=== PATIENT | female | born 1950 | race Asian ===

== ENCOUNTER → 2020-05-11 11:21 | Outpatient (BNVA) | payer MEDICARE, SELFPAY | PROVIDERS: PCP Internal Medicine; Visit Provider Orthopaedic Surgery | DX: Z47.1 Aftercare following joint replacement surgery (principal); Z96.651 Presence of right artificial knee joint | CPT/HCPCS: 99212 ==

== ENCOUNTER 2020-06-19 12:09 | Outpatient (REF) | payer MEDICARE, SELFPAY ==
[2020-06-19 13:45] LABS: Alanine Aminotransferase 28 U/L (0-31); Albumin Level 4.5 g/dL (3.5-5.0); Alkaline Phosphatase 114 U/L (39-117); Anion Gap 13 (12-20); Aspartate Amino Transferase 33 U/L (5-31); Bilirubin Total 0.6 mg/dL (0.0-1.0); Blood Urea Nitrogen 13 mg/dL (9-16); Calcium 9.3 mg/dL (8.4-10.2); Carbon Dioxide 28 mmol/L (22-29); Chloride 107 mmol/L (96-108); Estimated Glomerular Filt Rate 60; Glucose Random 113 mg/dL (60-115); Potassium 4.5 mmol/l (3.3-5.1); Sodium 143 mmol/L (135-145); Total Protein 7.7 g/dL (6.5-8.0)
== END 2020-06-19 12:10 | disposition home or self-care (01) ==
LOC: HO.LAB 12:09
PROVIDERS: Visit Provider Internal Medicine
DX: I10 Essential (primary) hypertension (principal)
CPT/HCPCS: 80053

== ENCOUNTER → 2020-06-22 09:40 | Outpatient (BNVA) | payer MEDICARE, SELFPAY | PROVIDERS: Visit Provider Orthopaedic Surgery | DX: Z47.1 Aftercare following joint replacement surgery (principal); Z96.652 Presence of left artificial knee joint | CPT/HCPCS: 99212 ==

== ENCOUNTER 2022-03-10 08:02 | Outpatient (REF) | payer MEDICARE, SELFPAY ==
--- NOTE | ~2022-03-10 | XR_ITS ---
EXAMINATION: XR KNEE-BILATERAL XR KNEE-LEFT CLINICAL INFORMATION: Right knee pain COMPARISON: Bilateral knee and right knee done on 1914 2019. TECHNIQUE: Standing AP view of both knees and lateral and sunrise view of the right knee. FINDINGS: Right knee: Postsurgical changes of total right knee arthroplasty is noted with intact hardware and satisfactory alignment. No significant change. AP upright lateral knee: Moderate medial and mild to moderate lateral compartmental osteoarthrosis, similar to prior study. XR/XR knee RT 2V IMPRESSION: 1. Stable postsurgical changes of total right knee arthroplasty showing intact hardware and satisfactory alignment, unchanged since 04/17/2020. 2. Stable osteoarthrosis of the left knee.
--- NOTE | ~2022-03-10 | XR_ITS ---
EXAMINATION: XR KNEE-BILATERAL XR KNEE-LEFT CLINICAL INFORMATION: Right knee pain COMPARISON: Bilateral knee and right knee done on 1914 2019. TECHNIQUE: Standing AP view of both knees and lateral and sunrise view of the right knee. FINDINGS: Right knee: Postsurgical changes of total right knee arthroplasty is noted with intact hardware and satisfactory alignment. No significant change. AP upright lateral knee: Moderate medial and mild to moderate lateral compartmental osteoarthrosis, similar to prior study. XR/XR knee standing BI IMPRESSION: 1. Stable postsurgical changes of total right knee arthroplasty showing intact hardware and satisfactory alignment, unchanged since 04/17/2020. 2. Stable osteoarthrosis of the left knee.
== END 2022-03-10 08:03 | disposition home or self-care (01) ==
LOC: HO.HOSX 08:02
PROVIDERS: Visit Provider Physician Assistant
DX: T84.84XA Pain due to internal orthopedic prosthetic devices, implants and grafts, initial encounter (principal); M25.562 Pain in left knee; Z96.651 Presence of right artificial knee joint
CPT/HCPCS: 73560; 73565; 99212

== ENCOUNTER → 2022-04-17 09:47 | Outpatient (BNVA) | payer MEDICARE, SELFPAY | PROVIDERS: PCP Internal Medicine; Visit Provider Nurse Practitioner Family | DX: M25.561 Pain in right knee (principal); Z96.653 Presence of artificial knee joint, bilateral | CPT/HCPCS: 99202 ==

== ENCOUNTER 2022-04-24 10:27 | Outpatient (REF) | payer MEDICARE, SELFPAY ==
--- NOTE | ~2022-04-24 | MM_ITS ---
EXAMINATION: BONE DENSITOMETRY CLINICAL INDICATION: Age-related osteoporosis without current pathological fracture. COMPARISON: Previous BD dated 10/05/2019 and baseline BD dated 07/09/2010. TECHNIQUE: Using a [employer] DXA System (software version: 13.1) manufactured by [employer], dual-energy x-ray absorptiometry was performed of the lumbar spine and left hip. The images are of good technical quality. Summary results are attached. FINDINGS: AP SPINE L1-L4: Current: BMD 0.937 g/cm2, Z-score 0.9, T-score -2.0, osteopenia, 0.4% increase from previous, 0.4% increase from baseline (<5% change is not significant). Prior: BMD 0.933 g/cm2. Baseline: BMD 0.933 g/cm2. LEFT FEMUR, NECK: Current: BMD 0.860 g/cm2, Z-score 1.3, T-score -1.3, osteopenia. Prior: BMD 0.931 g/cm2. Baseline: BMD 0.933 g/cm2. LEFT FEMUR, TOTAL: Current: BMD 0.991 g/cm2, Z-score 2.3, T-score -0.1, normal, 9.5% decrease from previous, 6.7% decrease from baseline (<5% change is not significant). Prior: BMD 1.095 g/cm2. Baseline: BMD 1.062 g/cm2. IDENTIFIED RISK FACTORS: Osteoporosis. Menopause. HISTORY OF FRACTURE: None listed. MEDICATIONS: Vitamin D. MM/XR DEXA axial skeleton IMPRESSION: 1. DIAGNOSIS: Osteopenia based on the lowest T-score value of -2.0 in the lumbar spine applying World Health Organization criteria. 2. 10-YEAR FRACTURE RISK PREDICTION, FRAX: Major osteoporotic fracture (clinical spine, forearm, hip or shoulder) 4.0%. Hip fracture 0.7%. 3. Treatment Recommendations: NOF guidelines recommend consideration for treatment in postmenopausal women and men age 50 and older presenting with the following: -A hip or vertebral (clinical or morphometric) fracture. -T-score less than or equal to -2.5 at the femoral neck or spine after appropriate evaluation to exclude secondary causes. -Low bone mass at the hip or spine and a 10-year fracture probability by FRAX of greater than or equal to 3% for hip fracture or greater than or equal to 20% for major osteoporotic fracture based on the [place] adapted WHO algorithm. 4. Other Recommendations: All treatment decisions require clinical judgment and consideration of individual patient factors, including patient preferences, comorbidities, previous drug use, risk factors not captured in the FRAX model (e.g. frailty, falls, vitamin D deficiency, increased bone turnover, interval significant decline in bone density) and possible under or overestimation of fracture risk by FRAX. Additional medical evaluation for secondary cause of low bone mineral density may be appropriate. FUTURE SCAN RECOMMENDATION: People with diagnosed cases of osteoporosis or at high risk for fracture should have regular bone mineral density tests. For patients eligible for Medicare, routine testing is allowed once every 2 years. The testing frequency can be increased to one year for patients who have rapidly progressing disease, those who are receiving or discontinuing medical therapy to restore bone mass, or have additional risk factors.
--- NOTE | ~2022-04-24 | MM_ITS ---
EXAMINATION: MM SCREENING DIGITAL BREAST TOMOSYNTHESIS, BILATERAL CLINICAL INFORMATION: Screening. Asymptomatic. The lifetime risk of breast cancer based on the Tyrer-Cuzick Model is 2%. COMPARISON: Mammography: 05/21/2019, 05/17/2018, 04/14/2017 TECHNIQUE: Digital breast tomosynthesis is performed in both the craniocaudal and mediolateral oblique views along with computer-aided detection (CAD). Synthesized 2D images are generated from the tomosynthesis. Additional right CC view is provided. FINDINGS: There are scattered areas of fibroglandular density (ACR BI-RADS breast composition Category b). There are no significant masses, abnormal calcifications, or other abnormalities. Parenchymal pattern is similar to prior studies. There is no developing density or architectural abnormality. The axilla and skin contours are unremarkable. No significant changes. MM/MM tomosynthesis screening BI IMPRESSION: No mammographic evidence of malignancy. ASSESSMENT: BI-RADS 1: Negative RECOMMENDATION: Routine annual mammography screening. This patient's information was entered into a reminder system with a target due date for their next mammogram.
== END 2022-04-24 10:28 | disposition home or self-care (01) ==
LOC: HO.MAMMO 10:27
PROVIDERS: PCP Internal Medicine; Visit Provider Internal Medicine
DX: Z12.31 Encounter for screening mammogram for malignant neoplasm of breast (principal); Z13.820 Encounter for screening for osteoporosis; M81.0 Age-related osteoporosis without current pathological fracture; Z78.0 Asymptomatic menopausal state
CPT/HCPCS: 77063; 77067; 77080

== ENCOUNTER 2022-05-28 06:01 | Outpatient (REF) | payer MEDICARE, SELFPAY | END 2022-05-28 06:02 | disposition home or self-care (01) | LOC: CF 06:01 | PROVIDERS: Visit Provider Internal Medicine | DX: M25.561 Pain in right knee (principal); Z96.659 Presence of unspecified artificial knee joint | CPT/HCPCS: 64447 ==

== ENCOUNTER 2022-07-15 10:01 | Outpatient (REF) | payer MEDICARE, SELFPAY ==
[2022-07-15 10:23] LABS: MANUAL DIFF FLAG NO
[2022-07-15 10:43] LABS: Basophils Absolute Auto 0.1 X10*3/uL (0.0-0.2); Basophils Percent Auto 0.7 % (0-2); Eosinophils Absolute Auto 0.1 X10*3/uL (0.0-0.4); Hematocrit 45.5 % (37.0-47.0); Imm Gran Abs Auto 0.03 X10*3/uL (0.00-0.03); Imm Gran Pct Auto 0.3 % (0.0-0.4); Lymphocytes Absolute Auto 1.9 X10*3/uL (1.2-4.9); Lymphocytes Percent Auto 22.4 % (20-40); Mean Corpuscular Hemoglobin 30.5 pg (27.0-33.0); Mean Corpuscular Volume 92.7 fL (80.0-98.0); Mean Platelet Volume 10.9 fL (9.4-12.3); Monocytes Absolute Auto 0.5 X10*3/uL (0.1-1.2); Monocytes Percent Auto 6.1 % (2-11); Neutrophils Percent Auto 69.5 % (45-73); Platelet Count 163 X10*3/uL (160-400); Red Blood Count 4.91 X10*6/uL (4.20-5.50); Red Cell Distribution Width 12.9 % (11.0-16.0); White Blood Count 8.7 X10*3/uL (4.8-10.8)
[2022-07-15 12:06] LABS: Folate 11.3 ng/mL (> or = 4.0); Vitamin B12 792 pg/mL (200-900)
[2022-07-15 12:58] LABS: Alanine Aminotransferase 38 U/L (0-31); Albumin Level 4.4 g/dL (3.5-5.0); Alkaline Phosphatase 111 U/L (39-117); Anion Gap 14 (12-20); Aspartate Amino Transferase 34 U/L (5-31); Bilirubin Total 0.5 mg/dL (0.0-1.0); Blood Urea Nitrogen 16 mg/dL (9-16); Calcium 9.8 mg/dL (8.4-10.2); Carbon Dioxide 25 mmol/L (22-29); Chloride 106 mmol/L (96-108); Cholesterol 139 mg/dL; Estimated Glomerular Filt Rate 56; Free T4 (Free Thyroxine) 1.02 ng/dL (0.71-1.85); Glucose Random 141 mg/dL (60-115); HDL Cholesterol 52 mg/dL; LDL Cholesterol Calculated 71 mg/dl; Potassium 4.5 mmol/L (3.3-5.1); Sodium 140 mmol/L (135-145); Total Protein 7.7 g/dL (6.5-8.0); Triglycerides 82 mg/dL; Vitamin D 25-OH Total 23.4 ng/mL (>30)
== END 2022-07-15 10:02 | disposition home or self-care (01) ==
LOC: HO.LAB 10:01
PROVIDERS: PCP Internal Medicine; Visit Provider Internal Medicine
DX: E66.9 Obesity, unspecified (principal); E78.00 Pure hypercholesterolemia, unspecified
CPT/HCPCS: 36415; 80053; 80061; 82306; 82607; 82746; 84439; 84443; 85025

== ENCOUNTER 2022-08-20 13:27 | Day surgery (SDC) | payer MEDICARE, SELFPAY ==
[2022-08-20 13:45] VITALS: BMI 33.9
--- NOTE | 2022-08-20 14:15 | MHC.SHP ---
Pre-Procedural Eval Section A Date of Service: 08/20/22 Section B Chief Complaint: Pain in right knee Relevant Family History (Specify if Yes): No Relevant Social History: Other (specify) Present Medications: see Short Stay Collaborative assessment Medical History: No relevant PMH History of Previous Operations: Relevant previous surgery/procedure and date(s) (Knee arthroplasty) Allergies: Allergies Allergy/AdvReac Type Severity Reaction Status Date / Time rifampin Allergy Unknown Rash Verified 08/20/22 13:44 bee sting Allergy Unknown Swelling Uncoded 08/20/22 13:44 Review of Systems Sugical H&P ROS: Negative: Constitution, Cardiovascular and Respiratory Exam Surgical H&P Exam: Normal: HEENT, Normal: Heart and Normal: Lungs Plan Diagnosis/Plan: Unchanged She had 100% knee pain relief for 3-4 hours post diagnostic injection. Proceed with temporary PNS of the right saphenous nerve under local and US guidance. Preop IV abx given history of TKA. Time Spent With Patient Time: Total time managing care of this patient today ____ minutes.
[2022-08-20] MEDS: ceFAZolin Sodium/Dextrose,Iso 2 GM/50 ML PIGGYBACK IV (15:55)
--- NOTE | 2022-08-20 16:16 | PC.NURSE ---
antibiotics as per md. Ramirez
[2022-08-20 16:33] VITALS: BP 178/89; PULSE 87; RESP 18; TEMP 36.8; O2SAT 99
--- NOTE | 2022-08-21 10:26 | PM.OP ---
Brief Operative Note Date of Service: 08/20/22 Pre-op diagnosis: Chronic right knee joint pain, post TKA lower limb causalgia Post-op diagnosis: same Procedure: Temporary right saphenous nerve stimulator placement Implants: SPR temporary PNS system Surgeon: Christiano Ramirez MD Anesthesia: local Was an Outpatient Coordinator used for this Procedure?: No Estimated blood loss (mL): 1 Pathology: none sent Condition: stable Disposition: same day
--- NOTE | 2022-08-21 10:30 | P.OP_ITS ---
Operative Note Operative Note Date of Service: 08/20/22 Narrative: Peripheral Nerve Stimulation Temporary Lead Placement, Ultrasound-Guided, Saphenous Nerve, Right ? After the risks, benefits and alternatives were discussed with the patient and informed consentwas obtained, patient was placed in the supine position and padded to foster comfort. Appropriate skin and bony landmarks were identified, and pertinent vascular structures were located. The skin overlying the needle entry site was prepped and draped in sterile fashion. Ultrasound was used to identify the femoral artery, the femoral vein and the saphenous nerve. After identifying and marking the intended target along the course of the Saphenous nerve, the skin around the planned entry point and the subcutaneous tissues were injected with local anesthetic. An introducer needle and stimulating probe were assembled, inserted and advanced along the intended course of the saphenous; nerve, taking care to maintain the proper depth of insertion as the introducer was advanced under ultrasound guidance. The introducer needle was delivered to a location in proximity to the nerve taking care not to puncture the femoral artery or the vein. Multiple stimulation parameters were used to deliver stimulation to the saphenous nerve in concert with stimulating at multiple positions around the nerve. Nerve target acquisition was confirmed noting generation of sensory and mild motor effects (paresthesia, muscle tension, etc) in the medial knee, leg and ankle; corresponding to the distribution of the saphenous nerve. Various electrical parameter combinations were tested, and the lead location was adjusted (physic ally relocated under ultrasound guidance) until the patient indicated medial knee paresthesia and tension overlapping the distribution of the patient?s typical region of pain. The stimulating probe was removed from the introducer and a percutaneous lead was guided through the needle and delivered to a location in similar proximity to the nerve. Final location was verified with electrical stimulation and documented. The introducer needle was removed, and the exposed end of the percutaneous lead was attached to an external stimulator unit. Various electrical parameter combinations were again tested until the patient indicated paresthesia and muscle tension overlapping the distribution of the patient?s typical region of pain. After confirming that lead impedance was in the normal range, the external unit was detached, the needle was removed, and the lead was anchored at the skin. The lead was threaded into the connector block and electrical continuity and desired patient response was confirmed. The connector block was attached to the external stimulator unit. The site was covered with a sterile occlusive dressing. A final ultrasound image was taken to document final placement. The patient was observed for stability of vital signs and comfort.
== END 2022-08-20 17:36 | disposition home or self-care (01) ==
PROVIDERS: PCP Internal Medicine; Visit Provider Internal Medicine
PROC: (CPT 64555; principal; 2022-08-20 14:40)
DX: M25.561 Pain in right knee (principal); G89.29 Other chronic pain; Z96.651 Presence of right artificial knee joint; M81.0 Age-related osteoporosis without current pathological fracture; E66.9 Obesity, unspecified; F41.8 Other specified anxiety disorders; I10 Essential (primary) hypertension; R73.02 Impaired glucose tolerance (oral); R76.12 Nonspecific reaction to cell mediated immunity measurement of gamma interferon antigen response without active tuberculosis; Z88.8 Allergy status to other drugs, medicaments and biological substances
CPT/HCPCS: 64555; C1778; J0690

== ENCOUNTER → 2022-08-26 10:38 | Outpatient (BNVA) | payer MEDICARE, SELFPAY | PROVIDERS: PCP Internal Medicine; Visit Provider Nurse Practitioner Family | DX: Z48.00 Encounter for change or removal of nonsurgical wound dressing (principal); Z96.89 Presence of other specified functional implants | CPT/HCPCS: 99211 ==

== ENCOUNTER → 2022-09-03 10:32 | Outpatient (BNVA) | payer MEDICARE, SELFPAY | PROVIDERS: PCP Internal Medicine; Visit Provider Nurse Practitioner Family | DX: Z48.00 Encounter for change or removal of nonsurgical wound dressing (principal); Z97.8 Presence of other specified devices | CPT/HCPCS: 99211 ==

== ENCOUNTER → 2022-10-17 08:53 | Outpatient (BNVA) | payer MEDICARE, SELFPAY | PROVIDERS: PCP Internal Medicine; Visit Provider Internal Medicine | DX: M25.561 Pain in right knee (principal); Z96.659 Presence of unspecified artificial knee joint | CPT/HCPCS: 99212 ==

== ENCOUNTER → 2022-12-26 11:03 | Outpatient (BNVA) | payer MEDICARE, SELFPAY | PROVIDERS: PCP Internal Medicine; Visit Provider Internal Medicine | DX: M25.561 Pain in right knee (principal); Z96.651 Presence of right artificial knee joint | CPT/HCPCS: 99212 ==

== ENCOUNTER 2023-01-15 07:24 | Outpatient (REF) | payer MEDICARE, SELFPAY ==
--- NOTE | ~2023-01-15 | XR_ITS ---
EXAMINATION: XR KNEE, RIGHT XR KNEE STANDING, BILATERAL CLINICAL INFORMATION: Knee pain. COMPARISON: Bilateral knees 03/10/2022 TECHNIQUE: AP standing view of both knees with 2 additional views of the right knee. FINDINGS: Total knee prosthesis is again seen on the right. Prosthetic components in good position and intact without significant change from prior. Again seen are moderate degenerative changes in the left knee with narrowing of the medial compartment and osteophytes, unchanged from prior. No fractures are detected. XR/XR knee standing BI IMPRESSION: 1. Right total knee prosthesis in good position. 2. Moderate degenerative changes left knee, unchanged.
--- NOTE | ~2023-01-15 | XR_ITS ---
EXAMINATION: XR KNEE, RIGHT XR KNEE STANDING, BILATERAL CLINICAL INFORMATION: Knee pain. COMPARISON: Bilateral knees 03/10/2022 TECHNIQUE: AP standing view of both knees with 2 additional views of the right knee. FINDINGS: Total knee prosthesis is again seen on the right. Prosthetic components in good position and intact without significant change from prior. Again seen are moderate degenerative changes in the left knee with narrowing of the medial compartment and osteophytes, unchanged from prior. No fractures are detected. XR/XR knee RT 2V IMPRESSION: 1. Right total knee prosthesis in good position. 2. Moderate degenerative changes left knee, unchanged.
== END 2023-01-15 07:25 | disposition home or self-care (01) ==
LOC: HO.HOSX 07:24
PROVIDERS: Visit Provider Orthopaedic Surgery
DX: M25.561 Pain in right knee (principal); M76.891 Other specified enthesopathies of right lower limb, excluding foot; E11.65 Type 2 diabetes mellitus with hyperglycemia; Z96.651 Presence of right artificial knee joint
CPT/HCPCS: 73560; 73565; 99212

== ENCOUNTER 2023-03-10 14:25 | Outpatient (AMB) | payer MEDICARE, SELFPAY ==
[2023-03-10 14:41] VITALS: BP 140/88; PULSE 94; O2SAT 97; BMI 34.1
--- NOTE | 2023-03-10 14:41 | A.OFFPC_ITS ---
Vital Signs 03/10/23 14:41 Height 4 ft 11 in Weight 169 lb BMI 34.1 BP 140/88 H Blood Pressure Location Lt brachial Position Sitting Pulse 94 Pulse Source Pulse Oximeter Pulse Oximetry (%) 97 Oxygen Delivery Method Room Air Intake Visit Reasons: Hypertension Allergies rifampin Allergy (Unknown, Verified 03/10/23 14:42) Rash bee sting Allergy (Unknown, Uncoded 03/10/23 14:42) Swelling Medication List - Last Reconciled 03/10/23 by Harmony Quintanilla MD acetaminophen (Tylenol) 650 mg PO Q6H PRN Bacillus coagulan-calcium carb 2 billion cell- 140 mg (Digestive Advantage Probiotic) caps PO blood pressure monitor (Blood Pressure Kit) As directed celecoxib (Celebrex) 200 mg PO BID PRN 90 days cholecalciferol (vitamin D3) 25 mcg PO DAILY cimetidine 200 mg PO .QD hydrochlorothiazide 25 mg PO DAILY lisinopril 40 mg PO DAILY 30 days metformin 500 mg PO BIDWMEAL polyethylene glycol 3350 (Miralax) 17 grams PO DAILY Tobacco use date assessed: 01/06/23 Fall risk assessment: No Falls in past year Last assessed Fall Risk: 03/10/23 Dental Screening Dental Screen Date: 03/10/23 Did you have a dental visit in the last 12 months?: Yes Did you have a dental problem in the last 6 months where you did not have access to dental care?: No Was dental information given to patient?: Patient has dentist HPI Hypertension HPI Details 72-year-old obese female with diabetes mellitus, hypertension, GERD last seen in January 2023. Patient complained of right knee pain(fall December 2021) and was sent to ortho. Patient is here for follow-up. Blood pressure medication adjusted. Review of the Ortho note seen in January 2023 with a history of right total knee replacement diagnosis of tendonitis right quadriceps tendon no relief from saphenous nerve block trial from the pain management in May 2022. Advise physical therapy [facility] Medical History (Reviewed 01/15/23 @ 10:43 by Sole Ferraro [facility]) Annual physical exam Anxiety and depression Breast cancer screening by mammogram Colon cancer screening Fatty liver GERD (gastroesophageal reflux disease) Hiatal hernia Hypertension Impaired glucose tolerance Knee osteoarthritis Obesity (BMI 30-39.9) Osteoporosis Positive QuantiFERON-TB Gold test Surgical History H/O shoulder surgery History of arthroscopy of left knee (~2005) S/P knee replacement Status post right knee replacement Family History Father Alcoholic Smoker Mother Breast cancer Daughter Bipolar 1 disorder Social History Housing: House Patient Tobacco Use Status: Never used Tobacco e-Cigarette/Vaping Use: Never Used Current occupational status: retired Current occupation: [employer] Cognitive needs: No Hearing needs: No Vision needs: No Questionnaire PHQ-9 Over the last 2 weeks, how often have you been bothered by any of the following problems? 1. Little interest or pleasure in doing things: not at all 2. Feeling down, depressed, or hopeless: not at all 3. Trouble falling or staying asleep, or sleeping too much: not at all 4. Feeling tired or having little energy: not at all 5. Poor appetite or overeating: not at all 6. Feeling bad about yourself - or that you are a failure or have let yourself or your family down: not at all 7. Trouble concentrating on things, such as reading the newspaper or watching television: not at all 8. Moving or speaking so slowly that other people could have noticed. Or the opposite - being so fidgety or restless that you have been moving around a lot more than usual: not at all 9. Thoughts that you would be better off or of hurting yourself in some way: not at all Total score: 0 Depression Screening Interpretation: Negative Source: Developed by Drs. Yung Clark, Garth Mondragon and colleagues, with an educational davina from [employer]. Thrive Questionnaire Date Thrive assessed: 09/08/22 AUDIT C Alcohol Use Questionnaire (AUDIT-C) 1. How often do you have a drink containing alcohol?: Monthly or less 2. How many drinks containing alcohol do you have on a typical day when you are drinking?: 1 or 2 Total Score: 1 DAVID-7 AMB Questionnaire DAVID-7 Date DAVID - 7 assessed: 09/08/22 Source: Developed by Drs. Yung L. Eli Clark, Garth Zaidi and colleagues, with an educational davina from [employer]. Physical exam (Primary Care) Vital Signs: Last Vital Signs Pulse 94 03/10/23 14:41 BP 140/88 H 03/10/23 14:41 Pulse Ox 97 03/10/23 14:41 Oxygen Delivery Method Room Air 03/10/23 14:41 BMI result Body Mass Index 34.1 Tobacco/Smoking Status: Tobacco use Status Tobacco use date assessed 01/06/23 03/10/23 14:43 Patient Tobacco Use Status Never used Tobacco 03/10/23 14:43 e-Cigarette/Vaping Use Never Used 03/10/23 14:43 PHQ-9: PHQ-9 Score PHQ-9: Total score 0 03/10/23 14:43 Depression Screening Interpretation: Negative Thrive Assessment: Date of Thrive Assessment Date Thrive assessed 09/08/22 03/10/23 14:43 Const General: alert; No acute distress Eyes Conjunctivae: conjunctivae normal Resp Auscultation: clear to auscultation bilaterally Cardio Rate: regular rate Rhythm: regular rhythm GI Inspection: Yes normal to inspection Extrem General: Yes normal to inspection and No edema Assessment and Plan Assessment & Plan (1) Type 2 diabetes mellitus with hyperglycemia: Code(s): E11.65 - Type 2 diabetes mellitus with hyperglycemia Plan: Decrease the amount of carbohydrate intake, pasta, bread, rice and potatoes are all sugar and that is aside from all the sweet stuff, remember that fruits are good but they are Sweet also. Hemoglobin A1c goal of less than 7.0 patient is on metformin 500 mg twice a day (2) Tendinitis of right quadriceps tendon: Code(s): M76.891 - Other specified enthesopathies of right lower limb, excluding foot Plan: Patient has met with Orthopedics and has recommended physical therapy but patient states the pain has not been resolving but would not do any further action. (3) Hypertension: Code(s): I10 - Essential (primary) hypertension Plan: Continue with blood pressure medication. Decrease salt intake and exercise patient had an adjustment of the lisinopril to 30 mg once a day January 2023 patient states has been taking 40 mg all along and blood pressure remains to be elevated. Will add hydrochlorothiazide to lower it down Medications: New hydrochlorothiazide 25 mg PO DAILY 30 tabs 3RF I10 - Essential (primary) hypertension Changed From lisinopril 30 mg PO DAILY 30 days 30 tabs 2RF I10 - Essential (primary) hypertension To lisinopril 40 mg PO DAILY 30 days 30 tabs 2RF I10 - Essential (primary) hypertension Coding Level of Care Code Est Pt Level 4 (58127) Diagnoses Type 2 diabetes mellitus with hyperglycemia E11.65 Tendinitis of right quadriceps tendon M76.891 Hypertension I10
== END 2023-03-10 15:16 | disposition home or self-care (01) ==
LOC: HO.HMGH 14:25
PROVIDERS: PCP Internal Medicine; Visit Provider Internal Medicine
DX: E11.65 Type 2 diabetes mellitus with hyperglycemia (principal); M76.891 Other specified enthesopathies of right lower limb, excluding foot; I10 Essential (primary) hypertension
CPT/HCPCS: 99214

== ENCOUNTER 2023-03-11 10:00 | Outpatient (RCR) | payer MEDICARE, SELFPAY ==
[2023-02-09 11:06] VITALS: BP 188/94; PULSE 80
--- NOTE | 2023-02-09 14:45 | MHC.PT.EP ---
[facility] [place] Office [place] Office [place] Office [address] Jg Alcant[place] [address] [phone] F: [phone] F: [phone] F: [phone] F: [phone] Physical Therapy Plan of Care Date of Evaluation: Date of Surgery: NA Diagnosis: Other specified enthesopathies of unspecified lower limb, excluding foot and presence of unspecified artificial knee joint, quadriceps tendonitis, hx of total knee arthroplasty Assessment: Maria A is a 72 yo female referred to PT for Other specified enthesopathies of unspecified lower limb, excluding foot and presence of unspecified artificial knee joint, quadriceps tendonitis, hx of total knee arthroplasty. On PT examination, signs and symptoms consistent with R quadricep tightness/pain, and R knee joint pain. Impairments include B gross hip weakness, B knee weakness, knee pain, TTP at anterior to posterior joint line, TTP at patellar and quadriceps tendon, and impaired gait. Functional limitations include inability to bend knees/squat, walk or stand for prolonged periods of time, difficulty ascending/descending stairs, and R knee pain and occasional swelling. PT needed to address aforementioned impairments and functional limitations. PT to include STM, K-taping, B hip/knee strengthening, gait training, postural education, pt education, and HEP Frequency and Duration: The patient will be seen 2 x per week for 5 weeks Short Term Goals: In 2 weeks... 1. Pt will 100% return demonstrate HEP in order to become I with HEP 2. Pt will improve B heel strike in order to improve gait cycle and balance during ambulation Placement Specialist Goals: in 5 weeks... 1. Pt will improve gross hip strength by 1 MMT point in order to walk longer distances without pain 2. Pt will improve gross knee strength by 1 MMT point in order to ascend/descend stairs reciprocally (IR ascending/descending stairs sideways) Treatment Plan: Modalities to reduce pain, spasms and effusion. Manual therapy to restore motion and function. Therapeutic exercise to improve strength and flexibility. Neuromuscular re-education for posture and balance. Therapeutic activities to return to functional activities of daily living. Electronically signed by: Iraida Xie PT DPT Please sign and return to therapist. Thank you for your referral.
--- NOTE | 2023-03-20 14:27 | MHC.PT.DC ---
[facility] [place] Office [place] Office [place] Office [address] Jg Alcantara [address] [phone] F: [phone] F: [phone] F: [phone] F: [phone] Physical Therapy Discharge Report Diagnosis: Other specified enthesopathies of unspecified lower limb, excluding foot and presence of unspecified artificial knee joint, quadriceps tendonitis, hx of total knee arthroplasty Date of Surgery: NA Date of Evaluation: 02/09/23 Date of Discharge: 03/20/23 Treatments to Date: 9 Cancellations to Date: No Shows to Date: Discharge Status: Recommend MD Follow-up Discharge Summary: Maria A has completed 9 PT visits. Per Maria A she has not had any change in her symptoms with PT. When Maria A asked if she was compliant with her HEP she stated yes but was unable to demonstrate exercises correctly. Question compliance with HEP. Due to lack of improvement with PT she is being d/c from PT. Maria A was in agreement with the plan. She was advised to follow up with her doctor. Maria A has been d/c from PT today. I reviewed all HEP with her. Electronically signed by: Iraida Xie PT DPT Please sign and return to therapist. Thank you for your referral.
== END 2023-03-20 14:28 | disposition home or self-care (01) ==
LOC: HO.PT 10:00
PROVIDERS: PCP Internal Medicine; Visit Provider Orthopaedic Surgery
DX: M76.891 Other specified enthesopathies of right lower limb, excluding foot (principal); Z96.651 Presence of right artificial knee joint
CPT/HCPCS: 97110; 97116; 97140; 97161; 97530

== ENCOUNTER 2023-12-04 11:10 | Outpatient (AMB) | payer MEDICARE, SELFPAY ==
--- NOTE | 2023-12-04 11:17 | MHC.PC.OV ---
Vital Signs 12/04/23 11:20 Height 4 ft 11 in Weight 162 lb BMI 32.7 BP 138/70 Blood Pressure Location Lt brachial Position Sitting Pulse 78 Pulse Source Pulse Oximeter Pulse Oximetry (%) 96 Oxygen Delivery Method Room Air Intake Visit Reasons: PE - see comments Allergies rifampin Allergy (Unknown, Verified 12/04/23 11:20) Rash bee sting Allergy (Unknown, Uncoded 12/04/23 11:20) Swelling Medication List - Last Reconciled 12/04/23 by Harmony Quintanilla MD acetaminophen (Tylenol) 650 mg PO Q6H PRN blood pressure monitor (Blood Pressure Kit) As directed celecoxib (Celebrex) 200 mg PO BID PRN 90 days cholecalciferol (vitamin D3) 25 mcg PO DAILY hydrochlorothiazide 25 mg PO DAILY lisinopril 40 mg PO DAILY 30 days metformin 500 mg PO BIDWMEAL polyethylene glycol 3350 (Miralax) 17 grams PO DAILY Tobacco use date assessed: 12/04/23 Fall risk assessment: No Falls in past year Last assessed Fall Risk: 12/04/23 Dental Screening Dental Screen Date: 12/04/23 Did you have a dental visit in the last 12 months?: Yes Did you have a dental problem in the last 6 months where you did not have access to dental care?: No Was dental information given to patient?: Patient has dentist HPI PE - see comments HPI Details 73-year-old obese female with controlled diabetes mellitus hypertension coming in for physical exam last seen in March 2023. Patient's colonoscopy due mammogram due and bone density is up-to-date. [facility] Medical History (Updated 12/04/23 @ 12:13 by Harmony Quintanilla MD) Breast cancer screening by mammogram Breast cancer screening Annual physical exam Blood sugar increased Colon cancer screening Knee osteoarthritis Osteoporosis GERD (gastroesophageal reflux disease) Hypertension Obesity (BMI 30-39.9) Positive QuantiFERON-TB Gold test Anxiety and depression Impaired glucose tolerance Fatty liver Hiatal hernia Surgical History (Updated 01/15/23 @ 10:57 by Norm Ross) Status post right knee replacement S/P knee replacement H/O shoulder surgery History of arthroscopy of left knee (~2005) Family History Father Alcoholic Smoker Mother Breast cancer Daughter Bipolar 1 disorder Social History (Updated 12/04/23 @ 12:06 by Harmony Quintanilla MD) Housing: House Alcohol intake: current Comment: once q 2 week 2 drinks Patient Tobacco Use Status: Never used Tobacco Years Smoked: 2 years teenager e-Cigarette/Vaping Use: Never Used Current occupational status: retired Current occupation: [employer] Cognitive needs: No Hearing needs: No Vision needs: No Questionnaire PHQ-9 Over the last 2 weeks, how often have you been bothered by any of the following problems? 1. Little interest or pleasure in doing things: not at all 2. Feeling down, depressed, or hopeless: not at all 3. Trouble falling or staying asleep, or sleeping too much: not at all 4. Feeling tired or having little energy: not at all 5. Poor appetite or overeating: not at all 6. Feeling bad about yourself - or that you are a failure or have let yourself or your family down: not at all 7. Trouble concentrating on things, such as reading the newspaper or watching television: not at all 8. Moving or speaking so slowly that other people could have noticed. Or the opposite - being so fidgety or restless that you have been moving around a lot more than usual: not at all 9. Thoughts that you would be better off or of hurting yourself in some way: not at all Total score: 0 Depression Screening Interpretation: Negative Depression Screening Done: Yes Source: Developed by Drs. Yung Clark, Eli Mariano, Garth Zaidi and colleagues, with an educational davina from [email or web address]. Thrive Questionnaire Date Thrive assessed: 12/04/23 I am a: Patient What is your living situation today?: I have a steady place to live Within the past 12 months, did the food you bought not last and you didn't have the money to get more?: Never true Within the past 12 months, did you worry whether your food would run out before you got money to buy more?: Never true Do you have trouble paying for medicines?: No Do you have trouble getting transportation to medical appointments?: No Do you have trouble paying your heating and electricity bill?: No Do you have trouble taking care of your child, family member or friend?: No Do you have trouble with day-to-day activities such as bathing, preparing meals, shopping, managing finances, etc.?: No Are you currently unemployed and looking for a job?: No Are you interested in more education?: No Currently or been in a relationship where the following occur: no concerns reported THRIVE Score: 0 AUDIT C Alcohol Use Questionnaire (AUDIT-C) 1. How often do you have a drink containing alcohol?: Monthly or less 2. How many drinks containing alcohol do you have on a typical day when you are drinking?: 1 or 2 Total Score: 1 DAVID-7 AMB Questionnaire DAVID-7 Date DAVID - 7 assessed: 12/04/23 Feeling nervous, anxious, or on edge: 0 = Not at all Not being able to stop or control worryin = Not at all Worrying too much about different things: 0 = Not at all Trouble relaxin = Not at all Being so restless that it is hard to sit still: 0 = Not at all Becoming easily annoyed or irritable: 0 = Not at all Feeling afraid as if something awful might happen: 0 = Not at all Total DAVID-7 score (0-4 normal; 5-9 mild; 10-14 moderate; 15-21 severe): 0 Source: Developed by Drs. Yung Clark, Eli Mariano, Garth Zaidi and colleagues, with an educational davina from [email or web address]. Review of Systems Const Denies poor appetite and Denies weakness Eyes Denies no additional complaints ENT Reports Normal hearing present, Denies dizziness, Denies nasal congestion, Denies tinnitus and Denies sore throat Card Denies chest pain, Denies syncope, Denies rapid heart rate and Denies dyspnea Resp Denies cough and Denies dyspnea GI Denies change in stool character, Reports constipation, Denies diarrhea, Denies nausea and Denies vomiting Denies urinary frequency, Denies difficulty voiding and Denies dysuria Neuro Reports Normal hearing present, Denies confusion, Denies dizziness, Denies syncope and Denies weakness Psych Denies confusion Physical exam (Primary Care) Vital Signs: Last Vital Signs Pulse 78 12/04/23 11:20 BP 138/70 12/04/23 11:20 Pulse Ox 96 12/04/23 11:20 Oxygen Delivery Method Room Air 12/04/23 11:20 BMI result Body Mass Index 32.7 Tobacco/Smoking Status: Tobacco use Status Tobacco use date assessed 12/04/23 12/04/23 11:21 Patient Tobacco Use Status Never used Tobacco 12/04/23 11:18 e-Cigarette/Vaping Use Never Used 12/04/23 11:18 PHQ-9: PHQ-9 Score PHQ-9: Total score 0 12/04/23 11:46 Depression Screening Interpretation: Negative Thrive Assessment: Date of Thrive Assessment Date Thrive assessed 12/04/23 12/04/23 11:21 Currently or been in a relationship where the following occur: no concerns reported Const General: No confusion Orientation/consciousness: No confusion HENMT Head: Yes normocephalic Ears: external ears normal and TM's normal bilaterally Face and sinus: Yes normal facial exam Mouth: moist mucous membranes Throat: Yes tonsils normal Eyes Conjunctivae: conjunctivae normal Pupils: Equal, round and reactive pupils present and Pupil accommodation reflex normal Direct Ophthalmoscopy: normal light reflex Neck Neck: No lymphadenopathy Thyroid: Thyroid normal Chest Chest palpation & inspection: normal inspection of the chest Resp Effort & Inspection: normal respiratory effort and no audible wheezes Auscultation: clear to auscultation bilaterally, no crackles, no wheezes and lung sounds not diminished Cardio Rate: regular rate Rhythm: regular rhythm Peripheral pulses: radial pulses present and dorsalis pedis present GI Palpation (GI): no masses Auscultation: normal bowel sounds and normoactive bowel sounds Rectal Exam - Female: deferred Skin General skin exam: no rashes or lesions noted Rashes: no rashes Neuro General: No confusion Cranial nerves: Yes Equal, round and reactive pupils present and Yes Normal hearing present Cognition (Neuro): normal cognition Gait exam (Neuro): Normal gait present Motor exam (neuro): 5/5 motor strength present throughout Deep tendon reflexes (DTR's): Right brachioradialis reflex intensity grade: 2+, Left brachioradialis reflex intensity grade: 2+, Right patellar reflex intensity grade: 2+ and Left patellar reflex intensity grade: 2+ Extrem General: No edema Results AMB Hemoglobin A1c AMB Hemoglobin A1c 6.3 % Last Edit by Ciera Roldan CMA on 12/04/23 11:47 Results Reviewed Results Reviewed: Laboratory Last Values Hgb A1c (Clinic) 6.3 % (4.0-6.0) H 12/04/23 11:47 Assessment and Plan Assessment & Plan (1) Type 2 diabetes mellitus with hyperglycemia: Comment: Eye and lasik Code(s): E11.65 - Type 2 diabetes mellitus with hyperglycemia Plan: Decrease the amount of carbohydrate intake, pasta, bread, rice and potatoes are all sugar and that is aside from all the sweet stuff, remember that fruits are good but they are Sweet also. Hemoglobin A1c goal of less than 7.0 presently on metformin 500 mg twice a day (2) Hypertension: Code(s): I10 - Essential (primary) hypertension Plan: Continue with blood pressure medication. Decrease salt intake and exercise lisinopril 40 mg once a day hydrochlorothiazide 25 mg once a day advised blood work (3) Obesity (BMI 30-39.9): Code(s): E66.9 - Obesity, unspecified Plan: Diet and exercise (4) GERD (gastroesophageal reflux disease): Code(s): K21.9 - Gastro-esophageal reflux disease without esophagitis Plan: Avoid the foods that causes that usually spicy foods, tomato products, juices, coffee, soda and foods that your sensitive to. After eating do not lie down, allow 3-4 hours before in lie down. And keep the head of bed above 30 degrees to avoid the acid from going up. (5) Annual physical exam: Code(s): Z00.00 - Encounter for general adult medical examination without abnormal findings (6) Colon cancer screening: Code(s): Z12.11 - Encounter for screening for malignant neoplasm of colon (7) Breast cancer screening by mammogram: Code(s): Z12.31 - Encounter for screening mammogram for malignant neoplasm of breast Orders: Orders AMB Hemoglobin A1c Today Z13.9 - Encounter for screening, unspecified Creatinine Urine Today E11.65 - Type 2 diabetes mellitus with hyperglycemia Free T4 (Free Thyroxine) Today E11.65 - Type 2 diabetes mellitus with hyperglycemia Vitamin B12 and Folate Today E11.65 - Type 2 diabetes mellitus with hyperglycemia Vitamin D 25-OH Total Today E11.65 - Type 2 diabetes mellitus with hyperglycemia Complete Blood Count Auto Diff Today E11.65 - Type 2 diabetes mellitus with hyperglycemia Comprehensive Met. Panel Today E11.65 - Type 2 diabetes mellitus with hyperglycemia Microalbumin, Random (w Creat) Today E11.65 - Type 2 diabetes mellitus with hyperglycemia Lipid Panel Today E11.65 - Type 2 diabetes mellitus with hyperglycemia, E78.00 - Pure hypercholesterolemia, unspecified Thyroid Stimulating Hormone Today E11.65 - Type 2 diabetes mellitus with hyperglycemia MM tomosynthesis screening BI Today Z12.31 - Encounter for screening mammogram for malignant neoplasm of breast Referrals Gastroenterology Referral Z12.11 - Encounter for screening for malignant neoplasm of colon Coding Level of Care Code Est Pt Prev Care >65y(80872) Diagnoses Type 2 diabetes mellitus with hyperglycemia E11.65 Hypertension I10 Obesity (BMI 30-39.9) E66.9 GERD (gastroesophageal reflux disease) K21.9 Annual physical exam Z00.00 Colon cancer screening Z12.11 Breast cancer screening by mammogram Z12.31
[2023-12-04 11:20] VITALS: BP 138/70; PULSE 78; O2SAT 96; BMI 32.7
== END 2023-12-04 12:20 | disposition home or self-care (01) ==
PROVIDERS: PCP Internal Medicine; Visit Provider Internal Medicine
DX: Z00.00 Encounter for general adult medical examination without abnormal findings (principal); E11.65 Type 2 diabetes mellitus with hyperglycemia; I10 Essential (primary) hypertension; K21.9 Gastro-esophageal reflux disease without esophagitis
CPT/HCPCS: 83036; 99397

== ENCOUNTER 2023-12-04 12:28 | Outpatient (REF) | payer MEDICARE, SELFPAY ==
[2023-12-04 12:37] LABS: MANUAL DIFF FLAG NO
[2023-12-04 13:08] LABS: Basophils Absolute Auto 0.1 X10*3/uL (0.0-0.2); Basophils Percent Auto 0.9 % (0-2); Eosinophils Absolute Auto 0.1 X10*3/uL (0.0-0.4); Eosinophils Percent Auto 1.3 % (0-4); Hematocrit 45.4 % (37.0-47.0); Hemoglobin 14.9 g/dl (12.0-16.0); Imm Gran Abs Auto 0.03 X10*3/uL (0.00-0.03); Imm Gran Pct Auto 0.4 % (0.0-0.4); Lymphocytes Absolute Auto 2.3 X10*3/uL (1.2-4.9); Mean Corpuscular HGB Conc 32.8 g/dl (31.0-35.0); Mean Corpuscular Hemoglobin 30.8 pg (27.0-33.0); Mean Platelet Volume 10.9 fL (9.4-12.3); Monocytes Absolute Auto 0.5 X10*3/uL (0.1-1.2); Monocytes Percent Auto 6.4 % (2-11); Neutrophils Absolute Auto 4.8 x10*3/uL (2.0-8.3); Platelet Count 171 X10*3/uL (160-400); Red Blood Count 4.83 X10*6/uL (4.20-5.50); Red Cell Distribution Width 13.1 % (11.0-16.0); White Blood Count 7.8 X10*3/uL (4.8-10.8)
[2023-12-04 13:39] LABS: Alanine Aminotransferase 27 U/L (0-31); Albumin Level 4.7 g/dL (3.5-5.0); Alkaline Phosphatase 113 U/L (39-117); Anion Gap 15 (12-20); Aspartate Amino Transferase 35 U/L (5-31); Bilirubin Total 0.8 mg/dL (0.0-1.0); Blood Urea Nitrogen 14 mg/dL (9-16); Calcium 10.3 mg/dL (8.4-10.2); Carbon Dioxide 25 mmol/L (22-29); Chloride 105 mmol/L (96-108); Cholesterol 153 mg/dL (<200); Estimated Glomerular Filt Rate 46; Glucose Random 112 mg/dL (60-115); HDL Cholesterol 66 mg/dL (>40); LDL Cholesterol Calculated 67 mg/dL (<100); Potassium 4.7 mmol/L (3.3-5.1); Sodium 140 mmol/L (135-145); Total Protein 8.4 g/dL (6.5-8.0); Triglycerides 103 mg/dL (<150)
[2023-12-04 13:56] LABS: Free T4 (Free Thyroxine) 0.87 ng/dL (0.71-1.85); Vitamin D 25-OH Total 25.2 ng/mL (>30)
[2023-12-04 14:09] LABS: Folate 9.9 ng/mL (> or = 4.0); Vitamin B12 566 pg/mL (200-900)
== END 2023-12-04 12:29 | disposition home or self-care (01) ==
LOC: HO.LAB 12:28
PROVIDERS: PCP Internal Medicine; Visit Provider Internal Medicine
DX: E11.65 Type 2 diabetes mellitus with hyperglycemia (principal); Z13.9 Encounter for screening, unspecified; E78.00 Pure hypercholesterolemia, unspecified
CPT/HCPCS: 36415; 80053; 80061; 82043; 82306; 82570; 82607; 82746; 84439; 84443; 85025

== ENCOUNTER 2023-12-15 10:41 | Outpatient (REF) | payer MEDICARE, SELFPAY | END 2023-12-15 10:42 | disposition home or self-care (01) | LOC: HO.MAMMO 10:41 | PROVIDERS: PCP Internal Medicine; Visit Provider Internal Medicine | DX: Z12.31 Encounter for screening mammogram for malignant neoplasm of breast (principal) | CPT/HCPCS: 77063; 77067 ==

== ENCOUNTER → 2023-12-15 11:00 | Outpatient (BNV) | payer MEDICARE, SELFPAY | PROVIDERS: PCP Internal Medicine; Visit Provider Radiology Diagnostic Radiology | DX: Z12.31 Encounter for screening mammogram for malignant neoplasm of breast (principal) | CPT/HCPCS: 77063; 77067 ==

== ENCOUNTER 2024-04-12 09:58 | Day surgery (SDC) | payer MEDICARE, SELFPAY ==
--- NOTE | 2024-04-11 09:06 | HO.ANESPROP2 ---
Documented by User: Lakesha Gomez NP 04/11/24 09:06 HPI - Anesthesia Eval Consult details Narrative: 73yo F for Colonoscopy PMFSH Active Problems Active Problems: All Active Problems Breast cancer screening by mammogram (Acute) Annual physical exam (Acute) Tendinitis of right quadriceps tendon (Acute) Colon cancer screening (Acute) Type 2 diabetes mellitus with hyperglycemia (Acute) Foreign body in ear (Acute) Hypertension (Acute) Osteopenia (Acute) Right anterior knee pain (Acute) Constipation (Acute) History of total knee arthroplasty (Acute) GERD (gastroesophageal reflux disease) (Acute) Obesity (BMI 30-39.9) (Acute) Past Medical History Medical History Elective surgery Diabetes Breast cancer screening Blood sugar increased Colon cancer screening Breast cancer screening by mammogram Annual physical exam Knee osteoarthritis Osteoporosis GERD (gastroesophageal reflux disease) Hypertension Obesity (BMI 30-39.9) Positive QuantiFERON-TB Gold test Anxiety and depression Impaired glucose tolerance Fatty liver Hiatal hernia Family History Family History Father Alcoholic Smoker Mother Breast cancer Daughter Bipolar 1 disorder Surgical History Surgical History H/O colonoscopy Status post right knee replacement S/P knee replacement H/O shoulder surgery History of arthroscopy of left knee (~2005) Social History Social History Housing: House Alcohol intake: current Comment: once q 2 week 2 drinks Patient Tobacco Use Status: Never used Tobacco Years Smoked: 2 years teenager e-Cigarette/Vaping Use: Never Used Current occupational status: retired Current occupation: [employer] Cognitive needs: No Hearing needs: No Vision needs: No Meds Allergies Allergy/AdvReac Type Severity Reaction Status Date / Time rifampin Allergy Unknown Rash Verified 04/12/24 10:10 bee sting Allergy Unknown Swelling Uncoded 12/04/23 11:20 Home Medications ?Medication ?Instructions ?Recorded ?Confirmed ?Last Taken ?Type acetaminophen 325 mg capsule 650 mg PO Q6H PRN Pain, Mild 05/11/20 04/12/24 Unknown History (Tylenol) cholecalciferol (vitamin D3) 25 25 mcg PO DAILY 06/19/20 04/12/24 Unknown History mcg (1,000 unit) capsule Assessment and Plan Assessment Anesthesia Assessment: Chart Reviewed Documented by User: Shanique Thomas MD 04/12/24 11:06 [facility] Past Medical History Medical History Elective surgery Diabetes Breast cancer screening Blood sugar increased Colon cancer screening Breast cancer screening by mammogram Annual physical exam Knee osteoarthritis Osteoporosis GERD (gastroesophageal reflux disease) Hypertension Obesity (BMI 30-39.9) Positive QuantiFERON-TB Gold test Anxiety and depression Impaired glucose tolerance Fatty liver Hiatal hernia Family History Family History Father Alcoholic Smoker Mother Breast cancer Daughter Bipolar 1 disorder Family history of problems with anesthesia: No Surgical History Surgical History H/O colonoscopy Status post right knee replacement S/P knee replacement H/O shoulder surgery History of arthroscopy of left knee (~2005) History of Problems with Anesthesia: No Social History Social History Housing: House Alcohol intake: current Comment: once q 2 week 2 drinks Patient Tobacco Use Status: Never used Tobacco Years Smoked: 2 years teenager e-Cigarette/Vaping Use: Never Used Current occupational status: retired Current occupation: [employer] Cognitive needs: No Hearing needs: No Vision needs: No Meds Allergies Allergy/AdvReac Type Severity Reaction Status Date / Time rifampin Allergy Unknown Rash Verified 04/12/24 10:10 bee sting Allergy Unknown Swelling Uncoded 12/04/23 11:20 Home Medications ?Medication ?Instructions ?Recorded ?Confirmed ?Last Taken ?Type acetaminophen 325 mg capsule 650 mg PO Q6H PRN Pain, Mild 05/11/20 04/12/24 Unknown History (Tylenol) cholecalciferol (vitamin D3) 25 25 mcg PO DAILY 06/19/20 04/12/24 Unknown History mcg (1,000 unit) capsule Exam Height,Weight and Vital Signs: Height 4 ft 11 in Weight 71.214 kg Vital Signs Temp Pulse Resp BP Pulse Ox O2 Del Method 04/12/24 10:34 97.6 F 85 15 159/81 H 98 Room Air Pertinent Lab Results Pertinent Lab Results: Lab Results 04/12/24 Range/Units 10:22 POC Glucose 130 H (60-115) mg/dL Airway Mallampati Class: II TM Dist: >3cm Neck ROM: Full Loose/Missing/Broken Teeth: Yes (Missing teeth back. Denies broken or loose teeth) Heart: RRR Lungs: CTAB Assessment and Plan Assessment Anesthesia Assessment: Anesthesia Plan Discussed and Chart Reviewed Final Anesthetic Review Family History of Problems with Anesthesia: No History of Problems with Anesthesia: No NPO: Yes ASA Class: II Final Preanesthetic Review: No Changes in Pt Med Stat, Meds/Allgs Chart Reviewed, Consent Obtained/Reviewed and Anes Risks/Benef Reviewed Patient Risk: Low Procedure Risk: Low Assessment/Block/Sedation in SS: Assess/Block/Sedation-SS Anesthetic Plan Anesthetic Plan: TIVA Disposition: Standard PACU
[2024-04-12 10:19] VITALS: BMI 31.7
[2024-04-12 10:34] VITALS: BP 159/81; PULSE 85; RESP 15; TEMP 36.4; O2SAT 98
[2024-04-12] MEDS: Lactated Ringers 1,000 ML 100 ML IVCONT (10:36)
[2024-04-12 10:46] LABS: Glucose, Whole Blood 130 mg/dL (60-115)
--- NOTE | 2024-04-12 10:59 | MHC.SHP ---
Pre-Procedural Eval Section A - 24 Hr Update-Section A only Date of Service: 04/12/24 The patient is an INPATIENT: No Changes since office visit: No Cold of Flu in the past 2 weeks, No New Medical Problems, No Changes in Medication and No Patient answered all questions The patient has been examined within 24 hours of the surgical procedure. The History & Physical has been completed within 30 days and I have reviewed it.: Yes Section B - Complete if H&P > 30 days Chief Complaint: Encounter for screening for malignant neoplasm of Allergies: Allergies Allergy/AdvReac Type Severity Reaction Status Date / Time rifampin Allergy Unknown Rash Verified 04/12/24 10:10 bee sting Allergy Unknown Swelling Uncoded 12/04/23 11:20 Plan I have reviewed the history and physical and performed a pertinent physical examination on my patient. No changes have occurred unless specified. Time Spent With Patient Time: Total time managing care of this patient today ____ minutes.
[2024-04-12 11:55] VITALS: BP 97/34; PULSE 82; RESP 16; TEMP 36.6; O2SAT 97
[2024-04-12 12:00] VITALS: BP 119/60; PULSE 86; RESP 14; O2SAT 97
--- NOTE | 2024-04-12 12:04 | OP_ITS ---
DATE OF SERVICE: 04/12/2024 SURGEON: Trevor Simon MD INDICATIONS: Colon cancer screening. PREOPERATIVE DIAGNOSIS: POSTOPERATIVE DIAGNOSIS: PROCEDURE PERFORMED: Colonoscopy to the terminal ileum with snare polypectomy. ESTIMATED BLOOD LOSS: COMPLICATIONS: ANESTHESIA: Monitored anesthesia care. ASSISTANTS: SPECIMENS: DESCRIPTION OF PROCEDURE: A history and physical was performed. The risks and benefits of the procedure were explained to the patient. Informed consent was obtained. The patient was placed in the left lateral decubitus position. A digital rectal exam was performed and was found to be normal. The Olympus pediatric video colonoscope was introduced into the rectum and advanced to the cecum. The cecum was identified by translumination, palpation, and identification of ileocecal valve. Examination was performed. The scope was removed. She tolerated the procedure well and was returned to the recovery area in stable condition. FINDINGS: The terminal ileum was examined and appeared normal. The visualized colonic mucosa was within normal limits. There was no evidence of masses or ulcers. A single polyp measuring approximately 6 mm was removed with a cold snare and recovered via suction. This was located at 70 cm from the anal verge. There was mild sigmoid diverticulosis. Retroflexed examination showed moderate-sized internal hemorrhoids. IMPRESSION: Colon polyp. RECOMMENDATION: Follow up the biopsy results. MD MICHELLE Herring/NEREYDA / [id number]
[2024-04-12 12:05] VITALS: BP 141/85; BP 145/89; PULSE 76; PULSE 78; RESP 15; RESP 16; TEMP 36.4; O2SAT 97; O2SAT 99
== END 2024-04-12 12:55 | disposition home or self-care (01) ==
PROVIDERS: PCP Internal Medicine; Visit Provider Internal Medicine Gastroenterology
PROC: 0DJD8ZZ Inspection of Lower Intestinal Tract, Via Natural or Artificial Opening Endoscopic (ICD-10-PCS; CPT 45378; principal; 2024-04-12 11:40)
DX: Z12.11 Encounter for screening for malignant neoplasm of colon (principal); D12.4 Benign neoplasm of descending colon; K57.30 Diverticulosis of large intestine without perforation or abscess without bleeding; K64.8 Other hemorrhoids; K21.9 Gastro-esophageal reflux disease without esophagitis; I10 Essential (primary) hypertension; E11.9 Type 2 diabetes mellitus without complications; E66.9 Obesity, unspecified; Z68.32 Body mass index [BMI] 32.0-32.9, adult; M85.80 Other specified disorders of bone density and structure, unspecified site; Z79.84 Long term (current) use of oral hypoglycemic drugs; Z79.899 Other long term (current) drug therapy
CPT/HCPCS: 45385; 82947; 88305; J2704

== ENCOUNTER 2024-04-20 09:50 | Outpatient (AMB) | payer MEDICARE, SELFPAY ==
[2024-04-20 09:55] VITALS: BP 142/84; PULSE 66; O2SAT 96; BMI 32.1
--- NOTE | 2024-04-20 09:55 | A.OFFPC_ITS ---
Vital Signs 04/20/24 09:55 Height 4 ft 11 in Weight 159 lb BMI 32.1 BP 142/84 H Blood Pressure Location Lt brachial Position Sitting Pulse 66 Pulse Source Pulse Oximeter Pulse Oximetry (%) 96 Oxygen Delivery Method Room Air Intake Visit Reasons: DM Follow Up Intake Note: Pt reported not taking her blood pressure medication but would like to discuss it further with Dr. Quintanilla. 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 Last seen in December 2023. Patient's colonoscopy is up-to-date 04/22/2024 having tubular adenoma. Mammogram is up-to-date 12/21/2023 and bone density is up-to-date. [facility] Medical History (Updated 04/20/24 @ 10:23 by Harmony Quintanilla MD) Colon cancer screening Breast cancer screening by mammogram Elective surgery Diabetes Breast cancer screening Blood sugar increased Annual physical exam Knee osteoarthritis Osteoporosis GERD (gastroesophageal reflux disease) Hypertension Obesity (BMI 30-39.9) Positive QuantiFERON-TB Gold test Anxiety and depression Impaired glucose tolerance Fatty liver Hiatal hernia Surgical History H/O colonoscopy Status post right knee replacement S/P knee replacement H/O shoulder surgery History of arthroscopy of left knee (~2005) Family History Father Alcoholic Smoker Mother Breast cancer Daughter Bipolar 1 disorder Social History Housing: House Alcohol intake: current Comment: once q 2 week 2 drinks Patient Tobacco Use Status: Never used Tobacco Tobacco use type: Cigarette Years Smoked: 2 years teenager e-Cigarette/Vaping Use: Never Used Current occupational status: retired Current occupation: [employer] Cognitive needs: No Hearing needs: No Vision needs: No Questionnaire Thrive Questionnaire Date Thrive assessed: 12/04/23 DAVID-7 AMB Questionnaire DAVID-7 Date DAVID - 7 assessed: 12/04/23 Source: Developed by Drs. Yung Clark, Eli Mariano, Garth Zaidi and colleagues, with an educational davina from [employer]. Physical exam (Primary Care) Vital Signs: Last Vital Signs Pulse 66 04/20/24 09:55 BP 142/84 H 04/20/24 09:55 Pulse Ox 96 04/20/24 09:55 Oxygen Delivery Method Room Air 04/20/24 09:55 BMI result Body Mass Index 32.1 Tobacco/Smoking Status: Tobacco use Status Tobacco use date assessed 12/04/23 04/20/24 09:57 Patient Tobacco Use Status Never used Tobacco 04/20/24 09:57 Tobacco use type Cigarette 04/20/24 10:03 e-Cigarette/Vaping Use Never Used 04/20/24 09:57 Thrive Assessment: Date of Thrive Assessment Date Thrive assessed 12/04/23 04/20/24 09:57 Const General: alert; No acute distress HENMT Other: L ear foreign body Eyes Conjunctivae: conjunctivae normal Resp Auscultation: clear to auscultation bilaterally Cardio Rate: regular rate Rhythm: regular rhythm GI Inspection: Yes normal to inspection Extrem General: Yes normal to inspection and No edema Office Procedures Cerumen Removal From which ear canal was the cerumen removed: left Removal: irrigation, otoscope w/curette and cerumen loop/spoon Notes: patient tolerated procedure well, no complications and ear canal clear [id number] Irrigation/Lavage Results AMB Hemoglobin A1c AMB Hemoglobin A1c 7.0 % Last Edit by Samina Hopper CMA on 04/20/24 10:08 Assessment and Plan Assessment & Plan (1) Type 2 diabetes mellitus with hyperglycemia: Comment: Eye and lasik Code(s): E11.65 - Type 2 diabetes mellitus with hyperglycemia Plan: Decrease the amount of carbohydrate intake, pasta, bread, rice and potatoes are all sugar and that is aside from all the sweet stuff, remember that fruits are good but they are Sweet also. Hemoglobin A1c goal of less than 7.0. On metformin 500 mg twice a day. admits to missing med and will need refill (2) Hypertension: Code(s): I10 - Essential (primary) hypertension Plan: Continue with blood pressure medication. Decrease salt intake and exercise patient is on hydrochlorothiazide only..patient states has not taken med. will chnage med to [facility] (3) Osteopenia: Comment: April 2022 Code(s): M85.80 - Other specified disorders of bone density and structure, unspecified site Plan: Will request for bone density (4) Tubular adenoma of colon: Comment: 04/22/2024 colonoscopy Code(s): D12.6 - Benign neoplasm of colon, unspecified Plan: 04/22/2024 (5) GERD (gastroesophageal reflux disease): Code(s): K21.9 - Gastro-esophageal reflux disease without esophagitis Plan: Avoid the foods that causes that usually spicy foods, tomato products, juices, coffee, soda and foods that your sensitive to. After eating do not lie down, allow 3-4 hours before in lie down. And keep the head of bed above 30 degrees to avoid the acid from going up. (6) Obesity (BMI 30-39.9): Code(s): E66.9 - Obesity, unspecified Plan: diet and exercise (7) Multiple pigmented nevi: Code(s): D22.9 - Melanocytic nevi, unspecified (8) Foreign body in ear: Comment: LEFT ear Code(s): T16.9XXA - Foreign body in ear, unspecified ear, initial encounter Plan: ear irrigation done cotton bud tip extracted Orders: Orders AMB Hemoglobin A1c Today E11.65 - Type 2 diabetes mellitus with hyperglycemia XR DEXA axial skeleton Today M81.0 - Age-related osteoporosis without current pathological fracture, M85.80 - Other specified disorders of bone density and structure, unspecified site Referrals Dermatology Referral D22.9 - Melanocytic nevi, unspecified Ophthalmology Referral E11.65 - Type 2 diabetes mellitus with hyperglycemia Medications: New lisinopril 5 mg PO DAILY 30 tabs 3RF I10 - Essential (primary) hypertension Refilled metformin 500 mg PO BIDWMEAL 180 tabs 3RF E11.65 - Type 2 diabetes mellitus with hyperglycemia Discontinued hydrochlorothiazide Discontinued Reason: Doctor's Order 25 mg PO DAILY 30 tabs 3RF I10 - Essential (primary) hypertension Coding Level of Care Code Est Pt Level 4 (64179) Complex EM visit Add On G2211 Diagnoses Type 2 diabetes mellitus with hyperglycemia E11.65 Hypertension I10 Osteopenia M85.80 Tubular adenoma of colon D12.6 GERD (gastroesophageal reflux disease) K21.9 Obesity (BMI 30-39.9) E66.9 Multiple pigmented nevi D22.9 Foreign body in ear T16.9XXA CPT Codes Office Procedure - CPT: 97788-Ptk Irrigation/Lavage ([id number])
== END 2024-04-20 10:30 | disposition home or self-care (01) ==
PROVIDERS: PCP Internal Medicine; Visit Provider Internal Medicine
DX: E11.65 Type 2 diabetes mellitus with hyperglycemia (principal); T16.2XXA Foreign body in left ear, initial encounter; I10 Essential (primary) hypertension; M85.80 Other specified disorders of bone density and structure, unspecified site; D12.6 Benign neoplasm of colon, unspecified; K21.9 Gastro-esophageal reflux disease without esophagitis; E66.9 Obesity, unspecified; D22.9 Melanocytic nevi, unspecified

== ENCOUNTER → 2024-04-20 09:50 | Outpatient (BNVA) | payer MEDICARE, SELFPAY | PROVIDERS: PCP Internal Medicine; Visit Provider Internal Medicine | DX: E11.65 Type 2 diabetes mellitus with hyperglycemia (principal); T16.2XXA Foreign body in left ear, initial encounter; I10 Essential (primary) hypertension; M85.80 Other specified disorders of bone density and structure, unspecified site; D12.6 Benign neoplasm of colon, unspecified; K21.9 Gastro-esophageal reflux disease without esophagitis; E66.9 Obesity, unspecified; D22.9 Melanocytic nevi, unspecified | CPT/HCPCS: 69210; 83036; 99212 ==

== ENCOUNTER 2024-05-13 12:49 | Outpatient (REF) | payer MEDICARE, SELFPAY ==
--- NOTE | ~2024-05-13 | MM_ITS ---
EXAMINATION: BONE DENSITOMETRY CLINICAL INDICATION: Osteoporosis. COMPARISON: Previous BD dated 04/24/2022 and baseline BD dated 07/09/2010. TECHNIQUE: Using a [employer] DXA System (software version: 13.1) manufactured by [employer], dual-energy x-ray absorptiometry was performed of the lumbar spine and left hip. The images are of good technical quality. Summary results are attached. FINDINGS: LEFT FEMUR, NECK: Current: BMD 1.026 g/cm2, Z-score 2.6, T-score -0.1, normal. Prior: BMD 0.860 g/cm2. Baseline: BMD 0.933 g/cm2. LEFT FEMUR, TOTAL: Current: BMD 1.066 g/cm2, Z-score 3.0, T-score 0.4, normal, 7.6% increase from previous, 0.4% increase from baseline (<5% change is not significant). Prior: BMD 0.991 g/cm2. Baseline: BMD 1.062 g/cm2. AP SPINE L1-L4: Current: BMD 0.953 g/cm2, Z-score 1.0, T-score -1.9, osteopenia, 1.7% increase from previous, 2.1% increase from baseline (<5% change is not significant). Prior: BMD 0.937 g/cm2. Baseline: BMD 0.933 g/cm2. IDENTIFIED RISK FACTORS: Menopause, osteoporosis, secondary osteoporosis. HISTORY OF FRACTURE: Shoulder, other. MEDICATIONS: Calcium, vitamin D. MM/XR DEXA axial skeleton IMPRESSION: 1. DIAGNOSIS: Osteopenia based on the lowest T-score value of -1.9 in the lumbar spine applying World Health Organization criteria. 2. 10-YEAR FRACTURE RISK PREDICTION, FRAX: Major osteoporotic fracture (clinical spine, forearm, hip or shoulder) 3.0%. Hip fracture 0.3%. 3. Treatment Recommendations: NOF guidelines recommend consideration for treatment in postmenopausal women and men age 50 and older presenting with the following: -A hip or vertebral (clinical or morphometric) fracture. -T-score less than or equal to -2.5 at the femoral neck or spine after appropriate evaluation to exclude secondary causes. -Low bone mass at the hip or spine and a 10-year fracture probability by FRAX of greater than or equal to 3% for hip fracture or greater than or equal to 20% for major osteoporotic fracture based on the [place] adapted WHO algorithm. 4. Other Recommendations: All treatment decisions require clinical judgment and consideration of individual patient factors, including patient preferences, comorbidities, previous drug use, risk factors not captured in the FRAX model (e.g. frailty, falls, vitamin D deficiency, increased bone turnover, interval significant decline in bone density) and possible under or overestimation of fracture risk by FRAX. Additional medical evaluation for secondary cause of low bone mineral density may be appropriate. FUTURE SCAN RECOMMENDATION: People with diagnosed cases of osteoporosis or at high risk for fracture should have regular bone mineral density tests. For patients eligible for Medicare, routine testing is allowed once every 2 years. The testing frequency can be increased to one year for patients who have rapidly progressing disease, those who are receiving or discontinuing medical therapy to restore bone mass, or have additional risk factors. Electronically signed by: Simona Montoya MD 05/16/2024 10:01 AM EDT
== END 2024-05-13 12:50 | disposition home or self-care (01) ==
LOC: HO.MAMMO 12:49
PROVIDERS: PCP Internal Medicine; Visit Provider Internal Medicine
DX: M81.0 Age-related osteoporosis without current pathological fracture (principal); M85.80 Other specified disorders of bone density and structure, unspecified site
CPT/HCPCS: 77080

== ENCOUNTER 2024-08-22 10:55 | Outpatient (AMB) | payer MEDICARE, SELFPAY ==
[2024-08-22 11:14] VITALS: BP 158/80; PULSE 78; TEMP 37.1; O2SAT 96; BMI 31.9
--- NOTE | 2024-08-22 11:14 | A.OFFPC_ITS ---
Vital Signs 08/22/24 11:14 Height 4 ft 11 in Weight 71.668 kg BMI 31.9 BP 158/80 H Blood Pressure Location Lt brachial Position Sitting Pulse 78 Pulse Source Pulse Oximeter Temp 98.7 F Temp Source Oral Pulse Oximetry (%) 96 Oxygen Delivery Method Room Air Intake Visit Reasons: DM, HTN Intake Note: Patient has been taking Dayquil and Nyquil for cold symptoms. Allergies rifampin Allergy (Unknown, Verified 08/22/24 11:14) Rash bee sting Allergy (Unknown, Uncoded 08/22/24 11:14) Swelling Tobacco use date assessed: 08/22/24 Fall risk assessment: No Falls in past year Last assessed Fall Risk: 08/22/24 Dental Screening Dental Screen Date: 08/22/24 Did you have a dental visit in the last 12 months?: Yes Did you have a dental problem in the last 6 months where you did not have access to dental care?: No Was dental information given to patient?: Patient has dentist HPI DM, HTN HPI Details The patient is a 73-year-old female presenting with a persistent cough and symptoms suggestive of a respiratory infection. The patient reports feeling unwell since after Harish, which included experiencing congestion and a cough but denies significant shortness of breath. She mentioned having a fever about a week prior but no longer has one. The patient noted feeling congested, but there is no sore throat or pain upon swallowing. She has been self-medicating with NyQuil and Dayquil for the symptoms but was informed that the decongestants in these medications could exacerbate her hypertension. The cough has persisted for over a month, leading to concerns about possible pneumonia, especially considering that she has been in contact with a sick household member. [facility] Medical History (Updated 08/22/24 @ 11:37 by Harmony Quintanilla MD) Colon cancer screening Breast cancer screening by mammogram Elective surgery Diabetes Breast cancer screening Blood sugar increased Annual physical exam Knee osteoarthritis Osteoporosis GERD (gastroesophageal reflux disease) Hypertension Obesity (BMI 30-39.9) Positive QuantiFERON-TB Gold test Anxiety and depression Impaired glucose tolerance Fatty liver Hiatal hernia Surgical History H/O colonoscopy Status post right knee replacement S/P knee replacement H/O shoulder surgery History of arthroscopy of left knee (~2005) Family History Father Alcoholic Smoker Mother Breast cancer Daughter Bipolar 1 disorder Social History Housing: House Alcohol intake: current Comment: once q 2 week 2 drinks Patient Tobacco Use Status: Never used Tobacco Tobacco use type: Cigarette Years Smoked: 2 years teenager e-Cigarette/Vaping Use: Never Used Current occupational status: retired Current occupation: [employer] Cognitive needs: No Hearing needs: No Vision needs: No Questionnaire PHQ-9 Over the last 2 weeks, how often have you been bothered by any of the following problems? 1. Little interest or pleasure in doing things: not at all 2. Feeling down, depressed, or hopeless: not at all 3. Trouble falling or staying asleep, or sleeping too much: not at all 4. Feeling tired or having little energy: not at all 5. Poor appetite or overeating: not at all 6. Feeling bad about yourself - or that you are a failure or have let yourself or your family down: not at all 7. Trouble concentrating on things, such as reading the newspaper or watching television: not at all 8. Moving or speaking so slowly that other people could have noticed. Or the opposite - being so fidgety or restless that you have been moving around a lot more than usual: not at all 9. Thoughts that you would be better off or of hurting yourself in some way: not at all Total score: 0 Depression Screening Interpretation: Negative Depression Screening Done: Yes Source: Developed by Drs. Yung Clark, Eli Mariano, Garth Zaidi and colleagues, with an educational davina from [employer]. Thrive Questionnaire Date Thrive assessed: 08/22/24 I am a: Patient What is your living situation today?: I have a steady place to live Within the past 12 months, did the food you bought not last and you didn't have the money to get more?: Never true Within the past 12 months, did you worry whether your food would run out before you got money to buy more?: Never true Do you have trouble paying for medicines?: No Do you have trouble getting transportation to medical appointments?: No Do you have trouble paying your heating and electricity bill?: No Do you have trouble taking care of your child, family member or friend?: No Do you have trouble with day-to-day activities such as bathing, preparing meals, shopping, managing finances, etc.?: No Are you currently unemployed and looking for a job?: No Are you interested in more education?: No Currently or been in a relationship where the following occur: No concerns reported THRIVE Score: 0 AUDIT C Alcohol Use Questionnaire (AUDIT-C) 1. How often do you have a drink containing alcohol?: Monthly or less 2. How many drinks containing alcohol do you have on a typical day when you are drinking?: 1 or 2 3. How often do you have six or more drinks on one occasion?: Never Total Score: 1 DAVID-7 AMB Questionnaire DAVID-7 Date DAVID - 7 assessed: 08/22/24 Feeling nervous, anxious, or on edge: 0 = Not at all Not being able to stop or control worryin = Not at all Worrying too much about different things: 0 = Not at all Trouble relaxin = Not at all Being so restless that it is hard to sit still: 0 = Not at all Becoming easily annoyed or irritable: 0 = Not at all Feeling afraid as if something awful might happen: 0 = Not at all Total DAVID-7 score (0-4 normal; 5-9 mild; 10-14 moderate; 15-21 severe): 0 Source: Developed by Drs. Yung Clark, Eli Mariano, Garth Zaidi and colleagues, with an educational davina from [employer]. Physical exam (Primary Care) Vital Signs: Last Vital Signs Temp 98.7 F 08/22/24 11:14 Pulse 78 08/22/24 11:14 BP 158/80 H 08/22/24 11:14 Pulse Ox 96 08/22/24 11:14 Oxygen Delivery Method Room Air 08/22/24 11:14 BMI result Body Mass Index 31.9 Tobacco/Smoking Status: Tobacco use Status Tobacco use date assessed 08/22/24 08/22/24 11:16 Patient Tobacco Use Status Never used Tobacco 08/22/24 11:16 Tobacco use type Cigarette 08/22/24 11:16 e-Cigarette/Vaping Use Never Used 08/22/24 11:16 PHQ-9: PHQ-9 Score PHQ-9: Total score 0 08/22/24 11:45 Depression Screening Interpretation: Negative Thrive Assessment: Date of Thrive Assessment Date Thrive assessed 08/22/24 08/22/24 11:16 Currently or been in a relationship where the following occur: No concerns reported Const General: alert; No acute distress Eyes Conjunctivae: conjunctivae normal Resp Auscultation: clear to auscultation bilaterally Cardio Rate: regular rate Rhythm: regular rhythm GI Inspection: Yes normal to inspection Extrem General: Yes normal to inspection and No edema Results AMB Hemoglobin A1c AMB Hemoglobin A1c 6.3 % Last Edit by Ciera Roldan CMA on 08/22/24 12 :05 Coding Level of Care Code Est Pt Level 4 (42234) Complex EM visit Add On G2211 Diagnoses Type 2 diabetes mellitus with hyperglycemia E11.65 Hypertension I10 GERD (gastroesophageal reflux disease) K21.9 Obesity (BMI 30-39.9) E66.9 Osteopenia M85.80 Cough R05.9 Assessment & Plan Assessment & Plan (1) Type 2 diabetes mellitus with hyperglycemia: Comment: Eye and lasik Code(s): E11.65 - Type 2 diabetes mellitus with hyperglycemia Category: Medical Plan: AIC 6.3 very good (2) Hypertension: Code(s): I10 - Essential (primary) hypertension Category: Medical Plan: stop nyquil as it contains phenylephrine which can exacerbate BP (3) GERD (gastroesophageal reflux disease): Code(s): K21.9 - Gastro-esophageal reflux disease without esophagitis Category: Medical (4) Obesity (BMI 30-39.9): Code(s): E66.9 - Obesity, unspecified Category: Medical (5) Osteopenia: Comment: April 2022, 05/2024 Code(s): M85.80 - Other specified disorders of bone density and structure, unspecified site Category: Medical (6) Cough: Code(s): R05.9 - Cough, unspecified Category: Medical Plan - Discontinue the use of [id number] medications containing pseudoephedrine or phenylephrine due to potential hypertensive effects. - Prescribe antibiotics for possible pneumonia and send the prescription to [facility]. - Request a chest X-ray to assess for pneumonia or other potential respiratory conditions. - Recommend the patient avoid contact with sick individuals to prevent further illness. - Monitor blood pressure closely and discuss hypertensive management options during the follow-up if necessary. - Arrange follow-up after chest X-ray results to review findings and adjust the treatment plan as required. - Emphasize the importance of medication adherence and lifestyle modifications to manage hypertension. Orders: Orders AMB Hemoglobin A1c Today Z13.9 - Encounter for screening, unspecified Thyroid Stimulating Hormone 3 Months E11.65 - Type 2 diabetes mellitus with hyperglycemia Creatinine Urine 3 Months E11.65 - Type 2 diabetes mellitus with hyperglycemia Lipid Panel 3 Months E11.65 - Type 2 diabetes mellitus with hyperglycemia, E78.00 - Pure hypercholesterolemia, unspecified XR chest 2V Today R05.9 - Cough, unspecified Complete Blood Count Auto Diff 3 Months E11.65 - Type 2 diabetes mellitus with hyperglycemia Comprehensive Met. Panel 3 Months E11.65 - Type 2 diabetes mellitus with hyperglycemia Free T4 (Free Thyroxine) 3 Months E11.65 - Type 2 diabetes mellitus with hyperglycemia Microalbumin, Random (w Creat) 3 Months E11.65 - Type 2 diabetes mellitus with hyperglycemia Vitamin B12 and Folate 3 Months E11.65 - Type 2 diabetes mellitus with hyper glycemia Vitamin D 25-OH Total 3 Months E11.65 - Type 2 diabetes mellitus with hyperglycemia Hemoglobin A1c 3 Months E11.65 - Type 2 diabetes mellitus with hyperglycemia SARS-CoV2/FLU/RSV Today R05.9 - Cough, unspecified Medications: New azithromycin (Zithromax) For 250 mg dose pack: take 500 mg today (day 1), then 250 mg for 4 days (days 2-5) PO 6 tabs 0RF R05.9 - Cough, unspecified
== END 2024-08-22 11:47 | disposition home or self-care (01) ==
PROVIDERS: PCP Internal Medicine; Visit Provider Internal Medicine
DX: E11.65 Type 2 diabetes mellitus with hyperglycemia (principal); I10 Essential (primary) hypertension; E66.9 Obesity, unspecified; Z68.31 Body mass index [BMI] 31.0-31.9, adult; K21.9 Gastro-esophageal reflux disease without esophagitis; M85.80 Other specified disorders of bone density and structure, unspecified site; R05.9 Cough, unspecified

== ENCOUNTER → 2024-08-22 10:55 | Outpatient (BNVA) | payer MEDICARE, SELFPAY | PROVIDERS: PCP Internal Medicine; Visit Provider Internal Medicine | DX: E11.65 Type 2 diabetes mellitus with hyperglycemia (principal); I10 Essential (primary) hypertension; K21.9 Gastro-esophageal reflux disease without esophagitis; E66.9 Obesity, unspecified; Z68.31 Body mass index [BMI] 31.0-31.9, adult; R05.9 Cough, unspecified; M85.80 Other specified disorders of bone density and structure, unspecified site; Z71.3 Dietary counseling and surveillance | CPT/HCPCS: 83036; 99212 ==

== ENCOUNTER 2024-10-05 10:48 | Outpatient (REF) | payer MEDICARE, SELFPAY ==
--- OUTSIDE RECORDS SUMMARY | 2024-10-05 13:02 | XMS_ITS ---
Author Organization [facility] Address [address] [place] [id number] Care Team Providers Care Gis Analyst Name Role Phone Harmony Quintanilla MD Primary Care Provider Trevor Davis Jr [phone] REASON FOR VISIT screening Encounters Encounter Location Date Provider Diagnosis [facility] Outpatient [address] [place] [id number] 04/12/2024 Trevor Simon Jr Colon cancer screening Z12.11 and Colon polyps K63.5 Assessments Encounter Date Diagnosis (ICD Code) Assessment Notes Treatment Notes Treatment Clinical Notes Section Notes 04/12/2024 Colon cancer screening (ICD-10 - Z12.11) 04/12/2024 Colon polyps (ICD-10 - K63.5) Plan Of Treatment No Information Progress Notes * SAEID ROYAL ADOB: 0 (74 yo F)Acc No.[id number]:04/12/2024 COLON WITH MAC Patient:?SAEID ROYAL Provider:?Trevor Simon MD :1950???Age:73 Y???Sex:Female D ate:04/12/2024 Address:[address] [place], [place] [id number] Pcp:Harmony Quintanilla MD Subjective: * Chief Complaints: * ???1. Screening. * Medical History:? Objective: * Vitals:? Assessment: * Assessment: 1.?Colon cancer screening - Z12.11 (Primary)???2.?Colon polyps - K63.5??? Plan: * Treatment: * Procedure Codes:?76210 LESIO N REMOVAL COLONOSCOPY, 0529F INTRVL 3+YRS PTS CLNSCP DOCD * * The named appointment provid er may or may not be the originator of this progress note, and it is not deemed complete until electronically signed by the appointment provider. Sign off status: Pending * Provider:?Trevor Simon MD Date:?0 04/12/2024 Generated for Melvin calixto/Regla/Gurdeepitting on:?10/05/2024 01:02 PM EST
--- OUTSIDE RECORDS SUMMARY | 2024-10-05 13:03 | XMS_ITS ---
Author Organization [facility] Address [address] [place] [address] Care Team Providers Care Coordinator Of Health Services Name Role Phone Harmony Quintanilla MD Primary Care Provider Trevor Davis Jr Unavailable [phone] Allergies No Known Allergies REASON FOR VISIT Patient presents today for a colon screening Medications Medication SIG (Take, Route, Frequency, Duration) Notes Start Date End Date Status MiraLax (colon prep) 17 GM/SCOOP mixed with Gatorade or Crystal Light Orally begin at 5:00 p.m. the day before the procedure for 1 day 03/28/2024 Active Tylenol 1 tab Oral for 14 days Active metFORMIN HCl 500 MG TAKE 1 TABLET BY MOUTH TWICE DAILY WITH MEALS Oral for 90 E1165,Unavailabl e Active Problems Problem Type SNOMED Code ICD Code Onset Dates Problem Status W/U Status Risk Notes Problem 653812391 Gastroesophageal reflux disease without esophagitis (K21.9) Active confirmed Problem 685781242 Colon cancer screening (Z12.11) Active confirmed Problem [id number] USP (curre nt) use of oral hypoglycemic drugs (Z79.84) Active confirmed Vital Signs Temperature 97.5 degrees Fahrenheit 03/28/20 24 Blood pressure systolic 000 mm Hg 03/28/20 24 Blood pressure diastolic 00 mm Hg 024 Height 59 in 03/28/2024 Weight 159 lb 6 oz lbs 03/28/2024 BMI 32.19 kg/m2 03/28/2024 Encounters Encounter Location Date Provider Diagnosis [facility] [address] [place] [address] 03/28/2024 Trevor Simon Jr Gastroesophageal reflux disease without esophagitis K21.9 ; Colon cancer screening Z12.11 and 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 We discussed diet, lifestyle modifications, and weight management regarding the treatment of reflux. She will continue her present measures. She is due for colorectal cancer screening. This will be arranged. She understands risks and benefits of the procedure and agrees to proceed. Advised stop metformin the day before the procedure. 03/28/2024 Colon cancer screening (ICD-10 - Z12.11) We discussed gastroesophageal reflux disease. We discussed diet, lifestyle modifications, and weight management regarding the treatment of reflux. She will continue her present measures. She is due for colorectal cancer screening. This will be arranged. She understands risks and benefits of the procedure and agrees to proceed. Advised stop metformin the day before the procedure. 03/28/2024 USP (current) use of oral hypoglycemic drugs (ICD-10 - Z79.84) We discussed gastroesophageal reflux disease. We discussed diet, lifestyle modifications, and weight management regarding the treatment of reflux. She will continue her present measures. She is due for colorectal cancer screening. This will be arranged. She understands risks and benefits of the procedure and agrees to proceed. Advised stop metformin the day before the procedure. Plan Of Treatment Medication Medication Name Sig Start Date Stop Date Notes MiraLax (colon prep) 17 GM/SCOOP mixed with Gatorade or Crystal Light Orally begin at 5:00 p.m. the day before the procedure for 1 day 03/28/2024 Treatment Notes Assessment Notes Gastroesophageal reflux disease without esophagitis Colonoscopy material was printed Future Test Test Name Order Date COLONOSCOPY 03/28/2024 Next Appt Details Follow Up: 1 Year, Reason: Progress Notes * SAEID ROYAL ADOB: 0 (73 yo F)Acc No.[id number]:03/28/2024 Progress Notes Patient:?SAEID ROYAL A Provider:?Trevor Simon MD :1950???Age:73 Y???Sex:Female D ate:03/28/2024 Address:[address] [place] [address] [id number] Pcp:Harmony Quintanilla MD Subjective: * Chief Complaints: * ???1. Patient presents today for a colon screening. * HPI: ???New symptom(s):? The patient is a pleasant 73-year-old woman seen today in consultation. She has a history of gastroesophageal reflux disease with substernal burning precipitated by typical foods including spicy foods and fatty foods. She last underwent upper endoscopy in 2015 which showed no evidence of Bull's esophagus or H. pylori. She has been treated in the past with proton pump inhibitors and is currently controlling her symptoms mainly with diet and weight loss. She does use nlpz-oxj-lnujymk acid reducers from time to time. She has no dysphagia, hematemesis, or melena. She is trying to lose weight. ?She previously underwent colonoscopy in 2008 which showed diverticular disease. Followup examination was recommended in 10 years. She is overdue for followup. She has no symptoms of diverticulitis and denies any other change in her bowel habits. * ROS:?General/Constitutional:?Change in appetite?denies.?Fatigue?denies.?ENT:?Patient denies?difficulty swallowing.?Respiratory:?Patient denies?shortness of breath.?Cardiovascular:?Patient denies?chest pain.?Gastrointestinal:?Comments?See HPI for details.?Genitourinary:?Difficulty urinating?denies.?Incontinence?denies.?Musculoskeletal:?Patient denies?muscle aches.?Skin:?Patient denies?pruritis.?Neurologic:?Patient denies?low back pain.?Psychiatric:?Patient denies?mental or physical abuse.? * Medical History:?Constipatio n, Elevated BMI, Hypertension, Osteopenia, Gastroesophageal reflux disease, EGD 02/15, no Bull's esophagus or H. pylori, Colonoscopy 08/2008, diverticulosis, ten-year followup, Diabetes mellitus type 2. * Surgical History:?rotator cu ff repair on the left upper extremity , Right knee arthroplasty , Tubal ligation . * Family History:?Father: dece ased.?Mother: .? family history unknown. * Social History:?Tobacco Use:?Tobacco Use/Smoking?Are you a: nonsmoker.?Drugs/Alcohol:?Alcohol Screen?Points: 1, Interpretation: Negative.?Miscellaneous:?Marital status: . Occupation: retired. * Medications:?Taking Tylenol 1 tab Oral , Taking metFORMIN HCl 500 MG Tablet TAKE 1 TABLET BY MOUTH TWICE DAILY WITH MEALS Oral , Notes: E1165,Unavailable, Discontinued Ibuprofen 800mg Tablet 1 tablet Orally PRN, Discontinued Metamucil 0.52 GM Capsule 2 capsules with 8 ounces of liquid Orally PRN, Discontinued Isoniazid 300 MG Tablet 1 Orally qd, Discontinued traMADol HCl 50 MG Tablet 1 tablet as needed Orally every 6 hrs/prn, Discontinued Omeprazole 20 MG Capsule Delayed Release 1 capsule Orally Once a day, Discontinued metroNIDAZOLE 500 MG Tablet 1 tablet Orally Once a day, Discontinued Alendronate Sodium 70 MG Tablet 1 tablet Orally Once a day, Discontinued Lisinopril 5 MG Tablet 1 tablet Orally Once a day, Discontinued Tums 500 MG Tablet Chewable 1 tablet Orally PRN, Discontinued Womans Laxative 5 MG Tablet Delayed Release 1 tablet as needed Orally PRN, Discontinued Acid Traffic Or System Dispatcher 150 MG Tablet 1 tablet Orally PRN, Discontinued DocQLace 100 MG Capsule 1 capsule as needed Orally Once a day, Medication List reviewed and reconciled with the patient * Allergies:?N.K.D.A. Objective: * Vitals:?Wt: 159 lb 6 oz, Ht: 59 in, BMI:32.19 Index, BP: 000/00 mm Hg, Temp: 97.5. * Examination: ???General Examination: ?GENERAL APPEARANCE:?in no acute distress.?HEAD:?normocephalic.?EYES:?sclera non-icteric.?ORAL CAVITY:?mucosa moist.?NECK/THYROID:?no lymphadenopathy.?SKIN:?anicteric.?HEART:?S1, S2 normal, no murmurs.?LUNGS:?clear to auscultation bilaterally.?CHEST:?normal shape and expansion.?ABDOMEN:?soft, nontender, nondistended, bowel sounds present, no organomegaly .?EXTREMITIES:?no clubbing, cyanosis, or edema.?PSYCH:?cognitive function intact.? Assessment: * Assessment: 1.?Gastroesophageal reflux d isease without esophagitis - K21.9 (Primary)?2.?Colon cancer screening - Z12.11?3.?intermediate accountant (current) use of oral hypoglycemic drugs - Z79.84? We discussed gastroesophagea l reflux disease. We discussed diet, lifestyle modifications, and weight management regarding the treatment of reflux. She will continue her present measures. She is due for colorectal cancer screening. This will be arranged. She understands risks and benefits of the procedure and agrees to proceed. Advised stop metformin the day before the procedure. Plan: * Treatment: 2.?Colon cancer screening? Start MiraLax (colon prep) Powder, 17 GM/SCOOP, mixed with Gatorade or Crystal Light, Orally, begin at 5:00 p.m. the day before the procedure, 1 day, 8.3 Ounce, Refills 0.?Procedure: COLONOSCOPY (Ordered for 03/28/2024) * Procedure Codes:?3017F COLOR ECTAL CA SCREEN DOC REV, G9903 Pt scrn tbco id as non user, G9744 PATIENT NOT ELIG D/T ACTIVE DX HTN * Preventive Medicine:? ??Counseling:?Care goal follow-up plan:?Above Normal BMI Follow-up?Giving encouragement to exercise,?BMI management provided?Yes.? ??Urinary Incontinence:?Urinary Incontinence?Assessment:?Absent,?Plan of care documented:?No, reason not specified.? ??Screenings:?Fall Risk Screening?Fall Risk Assessment:?No falls in the past year.? * Follow Up:?1 Year * * Sign off status: Completed true * Provider:?Trevor Simon MD Date:?0 03/28/2024 Generated for Melvin calixto/Regla/Gurdeepitting on:?10/05/2024 01:02 PM EST History and Physical Notes * HPI (History of Present Illness) Category Sub-Category Detail Notes Category Not es New symptom(s) The patient is a pleasant 73-year-old woman seen today in consultation. She has a history of gastroesophageal reflux disease with substernal burning precipitated by typical foods including spicy foods and fatty foods. She last underwent upper endoscopy in 2015 which showed no evidence of Bull's esophagus or H. pylori. She has been treated in the past with proton pump inhibitors and is currently controlling her symptoms mainly with diet and weight loss. She does use pnlc-qlz-wxlejyk acid reducers from time to time. She has no dysphagia, hematemesis, or melena. She is trying to lose weight. She previously underwent colonoscopy in 2008 which showed diverticular disease. Followup examination was recommended in 10 years. She is overdue for followup. She has no symptoms of diverticulitis and denies any other change in her bowel habits. Examination Category Sub-Category Detail Notes Category Not es General Examination GENERAL APPEARANCE: in no acute di stress HEAD: normocephalic EYES: sclera non-icteric NECK/THYROID: no lymphadenopathy HEART: S1, S2 normal, no mu rmurs CHEST: normal shape and exp ansion LUNGS: clear to auscultatio n bilaterally ABDOMEN: soft, nontender, non distended, bowel sounds present, no organomegaly SKIN: anicteric EXTREMITIES: no clubbing, cyanosi s, or edema PSYCH: cognitive function i ntact ORAL CAVITY: mucosa moist
== END 2024-10-05 10:49 | disposition home or self-care (01) ==
LOC: HO.LAB 10:48
PROVIDERS: PCP Internal Medicine; Visit Provider Internal Medicine
DX: Z13.89 Encounter for screening for other disorder (principal)